=== PATIENT | male | born 1975 | race Caucasian/White ===

== ENCOUNTER 2018-08-26 20:44 | Emergency (ER) | payer MEDICAID ==
[~2018-08-26] VITALS: Ht 175.3 cm; Wt 99.9 kg
[2018-08-26 20:53] VITALS: BP 168/86
[2018-08-26] MEDS ORDERED: LIDOcaine 1% w/epiNEPHrine 1:200,000 30ml vial IM ONE ×2 (23:20→23:30)
== END 2018-08-27 00:37 | disposition home or self-care (01) ==
LOC: ER 20:46
DX: S61.412A Laceration without foreign body of left hand, initial encounter (principal); Z91.041 Radiographic dye allergy status; W45.8XXA Other foreign body or object entering through skin, initial encounter; Y93.89 Activity, other specified; Y92.89 Other specified places as the place of occurrence of the external cause; Y99.8 Other external cause status
CPT/HCPCS: 12002; 73130; 99283